=== PATIENT | female | born 1970 | race Two or more races ===

== ENCOUNTER 2016-12-27 11:39 | Inpatient (IN) | payer MEDICAID ==
[~2016-12-27] VITALS: Ht 152.4 cm; Wt 104.3 kg
[~2016-12-27 11:39] MED LIST: ACET500C26 PO; ACET500C8 PO; AMIT25TA9 PO; AMLO5TAB2 PO; ASPI-264 PO; ATOR1TAB PO; CITA20TA3 PO; FLUT110A INH; GABA300C8 PO; INSLANTI; INSLISPI; INSUPOW; LEVE100012 PO; METF-312; NOR10T PO; OMEP20CA5 PO; TELM80TA PO
[2016-12-27 12:23] LABS: Basophils # (auto) 0 uL; Basophils % (auto) 0.5 % (0.0-2.0); DEFINITIVE VIEW TRANSMISSION; Eosinophils # (auto) 0.1 uL; Eosinophils % (auto) 0.8 % (0.0-7.0); Hematocrit 35.2 % (36.0-46.0); Lymphocytes # (auto) 1.9 uL; Mean Corpuscular Hemoglobin 22.5 pg (28.0-32.0); Mean Corpuscular Hgb Conc. 31.4 g/dL (32.0-36.0); Mean Corpuscular Volume 71.6 fL (80.0-100.0); Mean Platelet Volume 8.1 fL (7.4-10.4); Monocytes # (auto) 0.7 uL; Neutrophils # (auto) 6.7 uL; Neutrophils % (auto) 71.7 % (37.0-80.0); Platelet Count (auto) 439 10^3/uL (140-450); White Blood Cell 9.3 10^3/uL (4.4-10.8)
[2016-12-27] MEDS ORDERED: SODIUM CHLORIDE 0.9% 1,000 ML IV ONE (12:30)
[2016-12-27] MEDS ORDERED: cefTRIAXone 1GM/50ML D5W 50 ML IV ONE (12:30)
[2016-12-27] MEDS ORDERED: ALBUTEROL SULF 2.5 MG/0.5ML(0.5%) NEB SOLN NEB ONE (12:30)
[2016-12-27] MEDS ORDERED: IPRATROPIUM BROM 0.5 MG/2.5ML INH SOL NEB ONE (12:30)
[2016-12-27] MEDS ORDERED: methylPREDNISolone SOD SUCC 125 MG/2 ML VL IV ONE (12:30)
[2016-12-27 12:42] LABS: Albumin 3.1 g/dL (3.4-5.0); Anion Gap 9 (5-15); Blood Urea Nitrogen 7 mg/dL (7-18); Calcium 8.3 mg/dL (8.5-10.1); Carbon Dioxide 24 mmol/L (21-32); Chloride 100 mmol/L (98-107); Glucose 308 mg/dL (74-106); Magnesium 1.8 mg/dL (1.6-2.6); Potassium 3.7 mmol/L (3.5-5.1); Sodium 133 mmol/L (136-145)
[2016-12-27 12:45] LABS: Lactic Acid w/Reflex 2.2 mmol/L (0.4-2.0)
[2016-12-27 12:47] LABS: Alkaline Phosphatase 92 U/L (45-117); Aspartate Aminotransferase 14 U/L (15-37); Bilirubin, Total 0.6 mg/dL (0.2-1.0); GFR African American 116 mL/min; GFR Non-African American 96 mL/min; Total Protein 7.6 g/dL (6.4-8.2)
[2016-12-27 13:17] LABS: REFLEX LACTIC ACID YES OR NO YES
[2016-12-27] MEDS ORDERED: IBUPROFEN 600 MG TAB PO ONE (13:30)
[2016-12-27] MEDS ORDERED: InsuLIN REG 1unit/0.01ml Soln (100units/ml) IV ONE (14:15)
[2016-12-27] MEDS ORDERED: AZITHROMYCIN 500MG/D5W 250ML 250 ML IV ONE (15:30)
[2016-12-27] MEDS ORDERED: LORazepam 2MG/ML-1ML VIAL IV PRN (15:30)
[2016-12-27] MEDS ORDERED: DOCUSATE SOD 100 MG CAP PO PRN (15:45)
[2016-12-27] MEDS ORDERED: ACETAMINOPHEN 325 MG TAB PO PRN ×2 (15:45)
[2016-12-27] MEDS ORDERED: NITROGLYCERIN 0.4 MG SL TAB SL PRN (15:45)
[2016-12-27] MEDS ORDERED: MORPHINE SULF INJ 2 MG/ML SYRINGE 1ML IV PRN (15:45)
[2016-12-27] MEDS: NovoloG Insulin 1unit/0.01ml Soln (100units/ml) SC SCH (17:58)
[2016-12-27] MEDS: metFORMIN HYDROCHLORIDE 500 MG TAB PO SCH (18:40)
[2016-12-27] MEDS: Boost Glucose Control 8 Ounces PO SCH (18:40)
[2016-12-27] MEDS: IPRATROPIUM BROM 0.5 MG/2.5ML INH SOL NEB SCH (19:08)
[2016-12-27] MEDS: ALBUTEROL SULF 2.5 MG/0.5ML(0.5%) NEB SOLN NEB SCH (19:08)
[2016-12-27 20:34] VITALS: BP 142/81
[2016-12-27] MEDS: MORPHINE SULF INJ 2 MG/ML SYRINGE 1ML IV PRN (21:00)
[2016-12-27 21:54] VITALS: BP 123/44
[2016-12-27] MEDS: LEVETIRACETAM 500 MG TAB PO SCH (22:32)
[2016-12-27] MEDS: SODIUM CHLOR 0.9% PF (SALINE LOCK) 10ML VIAL IV SCH (22:32)
[2016-12-27] MEDS: GABAPENTIN 400 MG CAP PO SCH (22:33)
[2016-12-27] MEDS: FAMOTIDINE 20 MG TAB PO SCH (22:33)
[2016-12-27] MEDS: INSULIN DETEMIR(LEVEMIR) 1unit/0.01ml Soln (100units/ml) SC SCH (23:03)
[2016-12-27] MEDS: TEMAZEPAM 15 MG CAP PO PRN (23:27)
[2016-12-28] VITALS (7 sets, daily range): BP systolic 100–127; BP diastolic 60–76
[2016-12-28] MEDS: SODIUM CHLOR 0.9% PF (SALINE LOCK) 10ML VIAL IV SCH ×3 (05:28→21:41)
[2016-12-28] MEDS: metFORMIN HYDROCHLORIDE 500 MG TAB PO SCH ×2 (06:15→17:34)
[2016-12-28] MEDS: GABAPENTIN 400 MG CAP PO SCH ×3 (06:15→21:41)
[2016-12-28] MEDS: NovoloG Insulin 1unit/0.01ml Soln (100units/ml) SC SCH ×3 (06:31→17:13)
[2016-12-28 06:39] LABS: Basophils # (auto) 0 uL; DEFINITIVE VIEW TRANSMISSION; Eosinophils # (auto) 0 uL; Hematocrit 32.6 % (36.0-46.0); Hemoglobin 10.1 g/dL (12.2-16.2); Lymphocytes # (auto) 1.2 uL; Lymphocytes % (auto) 8.9 % (10.0-50.0); Mean Corpuscular Hemoglobin 22.5 pg (28.0-32.0); Mean Corpuscular Hgb Conc. 31.1 g/dL (32.0-36.0); Mean Corpuscular Volume 72.6 fL (80.0-100.0); Mean Platelet Volume 8.6 fL (7.4-10.4); Monocytes # (auto) 0.5 uL; Monocytes % (auto) 3.8 % (0.0-12.0); Neutrophils # (auto) 11.8 uL; Neutrophils % (auto) 87.3 % (37.0-80.0); Platelet Count (auto) 431 10^3/uL (140-450); White Blood Cell 13.5 10^3/uL (4.4-10.8)
[2016-12-28 06:48] LABS: Albumin 2.8 g/dL (3.4-5.0); Calcium 8.3 mg/dL (8.5-10.1); Potassium 3.7 mmol/L (3.5-5.1)
[2016-12-28 06:50] LABS: BUN/Creatinine Ratio 23.4
[2016-12-28 06:53] LABS: Bilirubin, Total 0.4 mg/dL (0.2-1.0); Total Protein 7.1 g/dL (6.4-8.2)
[2016-12-28 07:00] LABS: Anisocytosis Slight; Hypochromia Moderate; Microcytosis Moderate; Platelet Estimate Adequate
[2016-12-28] MEDS: ALBUTEROL SULF 2.5 MG/0.5ML(0.5%) NEB SOLN NEB SCH ×3 (07:50→19:15)
[2016-12-28] MEDS: IPRATROPIUM BROM 0.5 MG/2.5ML INH SOL NEB SCH ×3 (07:50→19:15)
[2016-12-28] MEDS: Boost Glucose Control 8 Ounces PO SCH ×3 (08:00→17:33)
[2016-12-28] MEDS: ONDANSETRON HCL 4 MG/2 ML VIAL IV PRN ×3 (08:45→20:12)
[2016-12-28] MEDS: MORPHINE SULF INJ 2 MG/ML SYRINGE 1ML IV PRN ×3 (08:45→20:12)
[2016-12-28] MEDS: cefTRIAXone 1GM/50ML D5W 50 ML IV SCH (09:44)
[2016-12-28] MEDS: AZITHROMYCIN 500MG/D5W 250ML 250 ML IV SCH (09:44)
[2016-12-28] MEDS: MULTIPLE VITAMIN TAB PO SCH (09:45)
[2016-12-28] MEDS: VALSARTAN 80 MG TAB PO SCH (09:45)
[2016-12-28] MEDS: LEVETIRACETAM 500 MG TAB PO SCH ×2 (09:45→21:41)
[2016-12-28] MEDS: amLODIPine BESYLATE 5 MG TAB PO SCH (09:45)
[2016-12-28] MEDS: FAMOTIDINE 20 MG TAB PO SCH ×2 (09:46→21:41)
[2016-12-28] MEDS ORDERED: OSELTAMIVIR 30 MG CAP PO SCH (11:34)
[2016-12-28] MEDS ORDERED: OSELTAMIVIR 75 MG CAP PO SCH (11:35)
[2016-12-28] MEDS: INSULIN DETEMIR(LEVEMIR) 1unit/0.01ml Soln (100units/ml) SC SCH (21:47)
[2016-12-29] MEDS: MORPHINE SULF INJ 2 MG/ML SYRINGE 1ML IV PRN ×5 (02:40→23:11)
[2016-12-29 05:30] VITALS: BP 105/69
[2016-12-29] MEDS: GABAPENTIN 400 MG CAP PO SCH ×3 (05:31→21:53)
[2016-12-29] MEDS: SODIUM CHLOR 0.9% PF (SALINE LOCK) 10ML VIAL IV SCH ×3 (06:20→21:56)
[2016-12-29] MEDS: NovoloG Insulin 1unit/0.01ml Soln (100units/ml) SC SCH ×3 (06:27→18:25)
[2016-12-29] MEDS: metFORMIN HYDROCHLORIDE 500 MG TAB PO SCH ×2 (06:27→18:23)
[2016-12-29] MEDS: IPRATROPIUM BROM 0.5 MG/2.5ML INH SOL NEB SCH ×4 (06:35→19:53)
[2016-12-29] MEDS: ALBUTEROL SULF 2.5 MG/0.5ML(0.5%) NEB SOLN NEB SCH ×4 (06:35→19:53)
[2016-12-29 08:00] VITALS: BP 115/69
[2016-12-29 08:25] VITALS: BP 115/69
[2016-12-29 09:07] LABS: Basophils # (auto) 0 uL; Basophils % (auto) 0.3 % (0.0-2.0); DEFINITIVE VIEW TRANSMISSION; Eosinophils # (auto) 0.1 uL; Eosinophils % (auto) 1.2 % (0.0-7.0); Hematocrit 29.9 % (36.0-46.0); Hemoglobin 9.3 g/dL (12.2-16.2); Lymphocytes # (auto) 3.2 uL; Lymphocytes % (auto) 33.7 % (10.0-50.0); Mean Corpuscular Hemoglobin 22.8 pg (28.0-32.0); Mean Corpuscular Hgb Conc. 31.1 g/dL (32.0-36.0); Mean Corpuscular Volume 73.3 fL (80.0-100.0); Mean Platelet Volume 8.1 fL (7.4-10.4); Monocytes # (auto) 0.6 uL; Monocytes % (auto) 6.2 % (0.0-12.0); Neutrophils # (auto) 5.6 uL; Neutrophils % (auto) 58.6 % (37.0-80.0); Platelet Count (auto) 411 10^3/uL (140-450); Red Cell Distribution Width 17.8 % (11.6-16.0); White Blood Cell 9.5 10^3/uL (4.4-10.8)
[2016-12-29] MEDS: Boost Glucose Control 8 Ounces PO SCH ×3 (09:18→18:23)
[2016-12-29] MEDS: cefTRIAXone 1GM/50ML D5W 50 ML IV SCH (09:18)
[2016-12-29] MEDS: AZITHROMYCIN 500MG/D5W 250ML 250 ML IV SCH (10:16)
[2016-12-29] MEDS: LEVETIRACETAM 500 MG TAB PO SCH ×2 (10:17→21:55)
[2016-12-29] MEDS: VALSARTAN 80 MG TAB PO SCH (10:17)
[2016-12-29] MEDS: FAMOTIDINE 20 MG TAB PO SCH ×2 (10:18→21:53)
[2016-12-29] MEDS: MULTIPLE VITAMIN TAB PO SCH (10:18)
[2016-12-29] MEDS: amLODIPine BESYLATE 5 MG TAB PO SCH (10:18)
[2016-12-29] MEDS: ONDANSETRON HCL 4 MG/2 ML VIAL IV PRN (10:32)
[2016-12-29 12:55] VITALS: BP 99/56
[2016-12-29 17:01] VITALS: BP 119/70
[2016-12-29] MEDS: TEMAZEPAM 15 MG CAP PO PRN (21:52)
[2016-12-29 22:00] VITALS: BP 108/56
[2016-12-29] MEDS: INSULIN DETEMIR(LEVEMIR) 1unit/0.01ml Soln (100units/ml) SC SCH (22:00)
[2016-12-29] MEDS ORDERED: ASCORBIC ACID 500 MG TAB PO SCH (22:00)
[2016-12-30] MEDS: IPRATROPIUM BROM 0.5 MG/2.5ML INH SOL NEB SCH ×2 (01:24→06:00)
[2016-12-30] MEDS: ALBUTEROL SULF 2.5 MG/0.5ML(0.5%) NEB SOLN NEB SCH ×2 (01:24→06:00)
[2016-12-30] MEDS: MORPHINE SULF INJ 2 MG/ML SYRINGE 1ML IV PRN ×2 (03:23→08:32)
[2016-12-30 05:30] VITALS: BP 124/76
[2016-12-30] MEDS: GABAPENTIN 400 MG CAP PO SCH (06:09)
[2016-12-30] MEDS: NovoloG Insulin 1unit/0.01ml Soln (100units/ml) SC SCH (06:09)
[2016-12-30] MEDS: metFORMIN HYDROCHLORIDE 500 MG TAB PO SCH (06:09)
[2016-12-30] MEDS: SODIUM CHLOR 0.9% PF (SALINE LOCK) 10ML VIAL IV SCH (06:09)
[2016-12-30] MEDS: cefTRIAXone 1GM/50ML D5W 50 ML IV SCH (08:32)
[2016-12-30 09:12] VITALS: BP 125/65
[2016-12-30] MEDS ORDERED: AMOX-263 PO (09:24)
[2016-12-30] MEDS ORDERED: AZI250T PO (09:24)
[2016-12-30] MEDS ORDERED: ASCO500T11 PO (09:24)
[2016-12-30 11:09] VITALS: BP 115/69
== END 2016-12-30 11:50 | disposition home or self-care (01) | DRG 139 ==
LOC: ER 11:43 → TELE 11:44 → TELE-WESTW 21:47
PROVIDERS: ADMIT Internal Medicine; ATTEND Internal Medicine
DX: J10.00 Influenza due to other identified influenza virus with unspecified type of pneumonia (principal); G93.41 Metabolic encephalopathy; E10.22 Type 1 diabetes mellitus with diabetic chronic kidney disease; E44.0 Moderate protein-calorie malnutrition; J44.0 Chronic obstructive pulmonary disease with (acute) lower respiratory infection; J45.901 Unspecified asthma with (acute) exacerbation; E10.65 Type 1 diabetes mellitus with hyperglycemia; I15.9 Secondary hypertension, unspecified; I12.9 Hypertensive chronic kidney disease with stage 1 through stage 4 chronic kidney disease, or unspecified chronic kidney disease; J44.1 Chronic obstructive pulmonary disease with (acute) exacerbation; E87.1 Hypo-osmolality and hyponatremia; J18.9 Pneumonia, unspecified organism; E83.51 Hypocalcemia; N18.9 Chronic kidney disease, unspecified; D50.9 Iron deficiency anemia, unspecified; G40.909 Epilepsy, unspecified, not intractable, without status epilepticus; Z79.4 Long term (current) use of insulin; Z86.73 Personal history of transient ischemic attack (TIA), and cerebral infarction without residual deficits; Z86.011 Personal history of benign neoplasm of the brain; Z68.41 Body mass index [BMI] 40.0-44.9, adult; Z90.49 Acquired absence of other specified parts of digestive tract; Z82.49 Family history of ischemic heart disease and other diseases of the circulatory system; Z83.3 Family history of diabetes mellitus; Z80.9 Family history of malignant neoplasm, unspecified; Z87.891 Personal history of nicotine dependence
CPT/HCPCS: 36415; 71020; 80053; 81025; 82962; 83036; 83540; 83605; 83735; 84443; 84484; 85025; 87040; 87081; 87400; 93005; 94640; 96365; 96366; 96367; 96375; G9035; J0696; J1815; J2405

== ENCOUNTER 2017-06-19 15:45 | Emergency (ER) | payer MEDICAID ==
[~2017-06-19] VITALS: Ht 152.4 cm; Wt 85.7 kg
[~2017-06-19 15:45] MED LIST changes: +AMOX-263 PO; +ASCO500T11 PO; +AZI250T PO; +GABA-497 PO; -GABA300C8 PO; -METF-312; +METF-370; -OMEP20CA5 PO; +OMEP20CA74 PO
[2017-06-19] MEDS ORDERED: SODIUM CHLORIDE 0.9% 1,000 ML IV ONE (16:07)
[2017-06-19 16:30] LABS: Basophils # (auto) 0 uL; Eosinophils # (auto) 0.1 uL; Hemoglobin 10.8 g/dL (12.2-16.2); Monocytes # (auto) 0.6 uL; Monocytes % (auto) 5.8 % (0.0-12.0); Nucleated Red Blood Cells % 0.1 %; Red Cell Distribution Width 17.5 % (11.8-14.3); White Blood Cell 9.7 10^3/uL (4.4-10.8)
[2017-06-19] MEDS ORDERED: ACETAMINOPHEN 325 MG TAB PO ONE (16:30)
[2017-06-19 16:31] LABS: Basophils % (auto) 0.2 % (0.0-2.0); Eosinophils % (auto) 1.3 % (0.0-7.0); Hematocrit 35.1 % (36.0-46.0); Lymphocytes # (auto) 2.7 uL; Mean Corpuscular Hemoglobin 21.6 pg (28.0-32.0); Mean Corpuscular Hgb Conc. 30.8 g/dL (32.0-36.0); Mean Corpuscular Volume 70.2 fL (80.0-100.0); Mean Platelet Volume 7.7 fL (6.9-10.8); Neutrophils # (auto) 6.3 uL; Neutrophils % (auto) 64.7 % (37.0-80.0); Platelet Count (auto) 397 10^3/uL (140-450)
[2017-06-19 16:36] LABS: Urine Bilirubin Negative (Negative); Urine Blood 2+ /uL (Negative); Urine Color Yellow (Yellow); Urine Glucose 2+ mg/dL (Normal); Urine Ketone Negative (Negative); Urine Nitrite Negative (Negative); Urine RBC 10 /hpf (0 - 4); Urine Squamous Epithelial Cell FEW /hpf (<5); Urine Urobilinogen Normal (Negative)
[2017-06-19 16:47] LABS: Albumin 3.4 g/dL (3.4-5.0); Calcium 8.8 mg/dL (8.5-10.1); Potassium 3.7 mmol/L (3.5-5.1)
[2017-06-19 16:50] LABS: Bilirubin, Total 0.6 mg/dL (0.2-1.0); Total Protein 7.8 g/dL (6.4-8.2)
[2017-06-19 17:25] VITALS: BP 117/79
== END 2017-06-19 17:26 | disposition home or self-care (01) ==
LOC: ER 15:47
DX: E11.65 Type 2 diabetes mellitus with hyperglycemia (principal); F17.210 Nicotine dependence, cigarettes, uncomplicated; Z79.82 Long term (current) use of aspirin; Z79.4 Long term (current) use of insulin
CPT/HCPCS: 36415; 80053; 81001; 82962; 85025; 94761; 96360; 99284; J7030

== ENCOUNTER 2018-02-16 13:36 | Inpatient (IN) | payer MEDICARE, MEDICAID ==
[~2018-02-16] VITALS: Ht 152.4 cm; Wt 92.8 kg
[~2018-02-16 13:36] MED LIST changes: -AZI250T PO; +AZIT250T8 PO; -GABA-497 PO; +GABA300C10 PO
[2018-02-16 14:23] LABS: Basophils # (auto) 0.1 uL; Basophils % (auto) 0.9 % (0.0-2.0); Eosinophils # (auto) 0.1 uL; Eosinophils % (auto) 0.9 % (0.0-7.0); Hematocrit 48.7 % (36.0-46.0); Hemoglobin 16.4 g/dL (12.2-16.2); Lymphocytes # (auto) 2.4 uL; Lymphocytes % (auto) 25.6 % (10.0-50.0); Mean Corpuscular Hemoglobin 30.2 pg (28.0-32.0); Mean Corpuscular Hgb Conc. 33.7 g/dL (32.0-36.0); Mean Corpuscular Volume 89.5 fL (80.0-100.0); Monocytes # (auto) 0.4 uL; Monocytes % (auto) 4.2 % (0.0-12.0); Neutrophils # (auto) 6.4 uL; Neutrophils % (auto) 68.4 % (37.0-80.0); Nucleated Red Blood Cells % 0.1 %; Platelet Count (auto) 362 10^3/uL (140-450); Red Blood Cells 5.45 10^6/uL (4.0-5.20); White Blood Cell 9.4 10^3/uL (4.4-10.8)
[2018-02-16 14:40] LABS: Alanine Aminotransferase 23 U/L (13-56); Albumin 3.1 g/dL (3.4-5.0); Anion Gap 13 (5-15); Aspartate Aminotransferase 15 U/L (15-37); BUN/Creatinine Ratio 11.8; Blood Urea Nitrogen 11 mg/dL (7-18); Calcium 8.3 mg/dL (8.5-10.1); Carbon Dioxide 23 mmol/L (21-32); Chloride 96 mmol/L (98-107); GFR African American 83 mL/min; GFR Non-African American 69 mL/min; Potassium 4.1 mmol/L (3.5-5.1); Sodium 132 mmol/L (136-145)
[2018-02-16 14:46] LABS: Alkaline Phosphatase 135 U/L (45-117); Bilirubin, Total 0.4 mg/dL (0.2-1.0); Total Protein 8.1 g/dL (6.4-8.2)
[2018-02-16 14:59] LABS: Glucose 495 mg/dL (74-106)
[2018-02-16] MEDS ORDERED: InsuLIN REG 1unit/0.01ml Soln (100units/ml) IV ONE (15:15)
[2018-02-16] MEDS ORDERED: PROMETHAZINE HCL 25 MG/ML 1ML IV PRN (16:00)
[2018-02-16] MEDS: ACCU-CHEK COMFORT CURVE STRIP VI SCH ×3 (16:00→23:40)
[2018-02-16] MEDS ORDERED: LORazepam 0.5 MG TAB PO PRN (16:00)
[2018-02-16] MEDS ORDERED: LACTULOSE 20Gm/30ML SOLN PO PRN (16:00)
[2018-02-16] MEDS ORDERED: NITROGLYCERIN 0.4 MG SL TAB SL PRN (16:00)
[2018-02-16] MEDS ORDERED: DEXTROSE (50%) 50ML SYRG IV PRN (16:00)
[2018-02-16] MEDS ORDERED: MORPHINE SULFATE 8mg/ml INJ SDV IV PRN ×2 (16:00)
[2018-02-16] MEDS: InsuLIN REG 1unit/0.01ml Soln (100units/ml) SC SCH ×2 (16:00→20:29)
[2018-02-16] MEDS: CLINDAMYCIN 600MG IV 50 ML IV SCH (16:30)
[2018-02-16] MEDS ORDERED: LORazepam 2MG/ML-1ML VIAL IV PRN (18:00)
[2018-02-16] MEDS: AMITRIPTYLINE HCL 25 MG TAB PO SCH (18:00)
[2018-02-16 19:30] LABS: Urine Bacteria NONE SEEN /hpf (None Seen); Urine Blood Negative /uL (Negative); Urine Specific Gravity 1.038 (1.001-1.035); Urine WBC 2 /hpf (0 - 5)
[2018-02-16 19:44] LABS: Alcohol, Urine < 3.0 mg/dL (0-5); Amphetamine Screen, Urine NEGATIVE (NEGATIVE); Barbiturate Scree,Urine NEGATIVE (NEGATIVE); Benzodiazephine Screen, Urine NEGATIVE (NEGATIVE); Cannabinoid Screen, Urine NEGATIVE (NEGATIVE); Cocaine Screen, Urine NEGATIVE (NEGATIVE); Opiate Scree,Urine NEGATIVE (NEGATIVE); Phencyclidine Screen, Urine NEGATIVE (NEGATIVE)
[2018-02-16] MEDS: ATORVASTATIN 20 MG TAB PO SCH (20:59)
[2018-02-16] MEDS: ASCORBIC ACID 500 MG TAB PO SCH (21:00)
[2018-02-16] MEDS: HYDROcodone-ACET 5/325MG TAB PO PRN (21:01)
[2018-02-16] MEDS: LEVETIRACETAM 500 MG TAB PO SCH (21:01)
[2018-02-16 21:15] VITALS: BP 141/93
[2018-02-16 22:00] VITALS: BP 141/93
[2018-02-16] MEDS ORDERED: FLUTICASONE PROP NASAL SPR 0.05 % (50MCG) 16GM EACHNOSTRI SCH (22:00)
[2018-02-16] MEDS ORDERED: GABAPENTIN 300 MG CAP PO SCH (22:00)
[2018-02-16] MEDS ORDERED: ATORVASTATIN 20 MG TAB PO SCH (22:00)
[2018-02-16] MEDS ORDERED: ACETAZOLAMIDE 500 MG PO SCH (22:00)
[2018-02-16] MEDS: TEMAZEPAM 15 MG CAP PO PRN (23:38)
[2018-02-16] MEDS: INSULIN LANTUS (GLARGINE) 1 /0.01ml (100units/ml) SC SCH (23:40)
[2018-02-17] MEDS: CLINDAMYCIN 600MG IV 50 ML IV SCH ×3 (01:28→16:49)
[2018-02-17] MEDS ORDERED: CIPR-173 PO (02:05)
[2018-02-17] MEDS ORDERED: CYCL1TAB18 PO (02:05)
[2018-02-17] MEDS ORDERED: LOSA100T33 PO (02:05)
[2018-02-17] MEDS ORDERED: BACL10TA PO (02:05)
[2018-02-17] MEDS: InsuLIN REG 1unit/0.01ml Soln (100units/ml) SC SCH ×7 (03:29→23:47)
[2018-02-17] MEDS: ACCU-CHEK COMFORT CURVE STRIP VI SCH ×6 (03:29→23:47)
[2018-02-17 05:28] VITALS: BP 117/77
[2018-02-17 07:18] LABS: INR 0.93 (0.9-1.15); Partial Thromboplastin Time 27.4 sec (23.78-33.04)
[2018-02-17 07:59] LABS: Cholesterol 265 mg/dL (< 200); HDL Cholesterol 34 mg/dL (40-59); LDL Cholesterol 189 mg/dL (< 100); Triglycerides 265 mg/dL (< 150)
[2018-02-17 08:35] VITALS: BP 109/75
[2018-02-17] MEDS ORDERED: ASPirin-EC 325mg tab PO SCH (10:00)
[2018-02-17] MEDS: TELMISARTAN HYDROCHLOROTHIAZID PO SCH (10:00)
[2018-02-17] MEDS: NITROGLYCERIN 0.2MG/HR TOPICAL PATCH TD SCH (10:00)
[2018-02-17] MEDS: ASPirin 81 mg TAB PO SCH (11:00)
[2018-02-17] MEDS: LEVETIRACETAM 500 MG TAB PO SCH ×2 (11:00→22:12)
[2018-02-17] MEDS: cefTRIAXone 1GM/10ml IVPUSH 10 ML IV SCH (11:00)
[2018-02-17] MEDS: CITALOPRAM HYDROBR 20 MG TAB PO SCH (11:00)
[2018-02-17] MEDS: amLODIPine BESYLATE 5 MG TAB PO SCH (11:01)
[2018-02-17] MEDS: ASCORBIC ACID 500 MG TAB PO SCH ×2 (11:01→22:12)
[2018-02-17] MEDS: PANTOPRAZOLE 40 MG TAB PO SCH (11:01)
[2018-02-17] MEDS: ENOXAPARIN SOD 40 MG/0.4 ML SYRINGE SC SCH (11:02)
[2018-02-17] MEDS: INSULIN LANTUS (GLARGINE) 1 /0.01ml (100units/ml) SC SCH ×2 (11:02→22:11)
[2018-02-17 12:02] VITALS: BP 100/65
[2018-02-17 16:56] VITALS: BP 134/84
[2018-02-17] MEDS: AMITRIPTYLINE HCL 25 MG TAB PO SCH (18:24)
[2018-02-17 21:04] VITALS: BP 126/79
[2018-02-17] MEDS: ATORVASTATIN 20 MG TAB PO SCH (22:12)
[2018-02-18] MEDS: CLINDAMYCIN 600MG IV 50 ML IV SCH ×3 (00:56→16:19)
[2018-02-18] MEDS: ACCU-CHEK COMFORT CURVE STRIP VI SCH ×6 (04:13→23:49)
[2018-02-18] MEDS: InsuLIN REG 1unit/0.01ml Soln (100units/ml) SC SCH ×6 (04:13→23:50)
[2018-02-18 04:58] VITALS: BP 133/79
[2018-02-18] MEDS: ACETAMINOPHEN 500 MG TAB PO PRN (08:29)
[2018-02-18 09:00] VITALS: BP 140/72
[2018-02-18] MEDS: TELMISARTAN HYDROCHLOROTHIAZID PO SCH (10:00)
[2018-02-18] MEDS: NITROGLYCERIN 0.2MG/HR TOPICAL PATCH TD SCH (10:00)
[2018-02-18] MEDS: HYDROcodone-ACET 5/325MG TAB PO PRN (10:15)
[2018-02-18] MEDS ORDERED: SODIUM CHLORIDE 0.9% 1,000 ML IV ONE (10:15)
[2018-02-18] MEDS: ASPirin 81 mg TAB PO SCH (10:55)
[2018-02-18] MEDS: cefTRIAXone 1GM/10ml IVPUSH 10 ML IV SCH (10:55)
[2018-02-18] MEDS: CITALOPRAM HYDROBR 20 MG TAB PO SCH (10:56)
[2018-02-18] MEDS: LEVETIRACETAM 500 MG TAB PO SCH ×2 (10:56→22:32)
[2018-02-18] MEDS: ASCORBIC ACID 500 MG TAB PO SCH ×2 (10:57→22:31)
[2018-02-18] MEDS: PANTOPRAZOLE 40 MG TAB PO SCH (10:57)
[2018-02-18] MEDS: amLODIPine BESYLATE 5 MG TAB PO SCH (10:57)
[2018-02-18 10:58] LABS: BUN/Creatinine Ratio 32.2; Calcium 8.6 mg/dL (8.5-10.1); Potassium 4.2 mmol/L (3.5-5.1)
[2018-02-18] MEDS: ENOXAPARIN SOD 40 MG/0.4 ML SYRINGE SC SCH (10:58)
[2018-02-18] MEDS: INSULIN LANTUS (GLARGINE) 1 /0.01ml (100units/ml) SC SCH ×2 (10:58→22:00)
[2018-02-18 13:00] VITALS: BP 156/94
[2018-02-18 17:00] VITALS: BP 123/64
[2018-02-18] MEDS: AMITRIPTYLINE HCL 25 MG TAB PO SCH (18:00)
[2018-02-18 22:00] VITALS: BP 133/84
[2018-02-18] MEDS: ATORVASTATIN 20 MG TAB PO SCH (22:32)
[2018-02-19] MEDS: CLINDAMYCIN 600MG IV 50 ML IV SCH ×3 (00:01→16:23)
[2018-02-19] MEDS: ACCU-CHEK COMFORT CURVE STRIP VI SCH ×5 (04:00→20:00)
[2018-02-19] MEDS: InsuLIN REG 1unit/0.01ml Soln (100units/ml) SC SCH ×5 (04:00→20:00)
[2018-02-19 05:26] VITALS: BP 133/88
[2018-02-19] MEDS ORDERED: fentaNYL CITRATE 100 MCG/2 ML VL ONE (07:56)
[2018-02-19] MEDS ORDERED: SODIUM CHL 0.9% 50 ML ONE (07:56)
[2018-02-19] MEDS ORDERED: ANGIOMAX 250 MG VIAL IV ONE (07:56)
[2018-02-19] MEDS ORDERED: MIDAZOLAM HCL 1MG/1ML-2 ML VIAL ONE (07:56)
[2018-02-19] MEDS: cefTRIAXone 1GM/10ml IVPUSH 10 ML IV SCH (09:00)
[2018-02-19] MEDS ORDERED: VERAPAMIL 2.5MG/ML INJ 2ML VIAL IV ONE (09:23)
[2018-02-19] MEDS ORDERED: HEPARIN 1,000 UNITS/ml 1ML VIAL ONE (09:38)
[2018-02-19] MEDS: ENOXAPARIN SOD 40 MG/0.4 ML SYRINGE SC SCH (10:00)
[2018-02-19] MEDS: NITROGLYCERIN 0.2MG/HR TOPICAL PATCH TD SCH (10:00)
[2018-02-19] MEDS: amLODIPine BESYLATE 5 MG TAB PO SCH (10:00)
[2018-02-19] MEDS: TELMISARTAN HYDROCHLOROTHIAZID PO SCH (10:00)
[2018-02-19 12:00] VITALS: BP 149/88
[2018-02-19] MEDS: CITALOPRAM HYDROBR 20 MG TAB PO SCH (13:13)
[2018-02-19] MEDS: ASPirin 81 mg TAB PO SCH (13:13)
[2018-02-19] MEDS: PANTOPRAZOLE 40 MG TAB PO SCH (13:14)
[2018-02-19] MEDS: LEVETIRACETAM 500 MG TAB PO SCH ×2 (13:14→22:45)
[2018-02-19] MEDS: ASCORBIC ACID 500 MG TAB PO SCH ×2 (13:15→22:46)
[2018-02-19] MEDS: INSULIN LANTUS (GLARGINE) 1 /0.01ml (100units/ml) SC SCH ×2 (13:15→22:00)
[2018-02-19 16:00] VITALS: BP 123/71
[2018-02-19] MEDS: HYDROcodone-ACET 5/325MG TAB PO PRN ×2 (16:21→22:46)
[2018-02-19] MEDS: AMITRIPTYLINE HCL 25 MG TAB PO SCH (18:00)
[2018-02-19] MEDS: ACETAMINOPHEN 500 MG TAB PO PRN (21:21)
[2018-02-19] MEDS: ATORVASTATIN 20 MG TAB PO SCH (22:44)
[2018-02-20] MEDS: TEMAZEPAM 15 MG CAP PO PRN (00:15)
[2018-02-20] MEDS: CLINDAMYCIN 600MG IV 50 ML IV SCH ×2 (00:15→08:55)
[2018-02-20] MEDS: ACCU-CHEK COMFORT CURVE STRIP VI SCH ×3 (04:00→08:54)
[2018-02-20] MEDS: InsuLIN REG 1unit/0.01ml Soln (100units/ml) SC SCH ×3 (04:00→08:55)
[2018-02-20 05:56] VITALS: BP 113/74
[2018-02-20 06:33] LABS: Basophils # (auto) 0 uL; Basophils % (auto) 0.5 % (0.0-2.0); Eosinophils # (auto) 0.1 uL; Eosinophils % (auto) 1.7 % (0.0-7.0); Hematocrit 40.7 % (36.0-46.0); Hemoglobin 13.7 g/dL (12.2-16.2); Lymphocytes # (auto) 2.5 uL; Lymphocytes % (auto) 34.7 % (10.0-50.0); Mean Corpuscular Hemoglobin 30.5 pg (28.0-32.0); Mean Corpuscular Hgb Conc. 33.8 g/dL (32.0-36.0); Mean Corpuscular Volume 90.3 fL (80.0-100.0); Monocytes # (auto) 0.5 uL; Monocytes % (auto) 7.2 % (0.0-12.0); Neutrophils % (auto) 55.9 % (37.0-80.0); Platelet Count (auto) 285 10^3/uL (140-450); Red Blood Cells 4.51 10^6/uL (4.0-5.20); White Blood Cell 7.2 10^3/uL (4.4-10.8)
[2018-02-20 07:11] LABS: Potassium 3.8 mmol/L (3.5-5.1)
[2018-02-20 07:14] LABS: Albumin 2.7 g/dL (3.4-5.0); BUN/Creatinine Ratio 34.5; Calcium 8.4 mg/dL (8.5-10.1)
[2018-02-20 07:23] LABS: Bilirubin, Total 0.5 mg/dL (0.2-1.0); Total Protein 6.3 g/dL (6.4-8.2)
[2018-02-20] MEDS: cefTRIAXone 1GM/10ml IVPUSH 10 ML IV SCH (08:55)
[2018-02-20 09:00] VITALS: BP 130/74
[2018-02-20] MEDS: ENOXAPARIN SOD 40 MG/0.4 ML SYRINGE SC SCH (10:00)
[2018-02-20] MEDS: NITROGLYCERIN 0.2MG/HR TOPICAL PATCH TD SCH (10:00)
[2018-02-20] MEDS: TELMISARTAN HYDROCHLOROTHIAZID PO SCH (10:00)
[2018-02-20] MEDS: amLODIPine BESYLATE 5 MG TAB PO SCH (10:22)
[2018-02-20] MEDS: ASCORBIC ACID 500 MG TAB PO SCH (10:22)
[2018-02-20] MEDS: CITALOPRAM HYDROBR 20 MG TAB PO SCH (10:23)
[2018-02-20] MEDS: ASPirin 81 mg TAB PO SCH (10:23)
[2018-02-20] MEDS: LEVETIRACETAM 500 MG TAB PO SCH (10:23)
[2018-02-20] MEDS: PANTOPRAZOLE 40 MG TAB PO SCH (10:23)
[2018-02-20] MEDS: INSULIN LANTUS (GLARGINE) 1 /0.01ml (100units/ml) SC SCH (11:04)
== END 2018-02-20 12:00 | disposition home or self-care (01) | DRG 205 ==
LOC: ER 13:43 → TELE 13:44 → TELE-CENTR 23:26
PROVIDERS: ADMIT Internal Medicine; ATTEND Family Medicine
PROC: B41G1ZZ Fluoroscopy of Left Lower Extremity Arteries using Low Osmolar Contrast (ICD-10-PCS; principal; 2018-02-19)
DX: M94.0 Chondrocostal junction syndrome [Tietze] (principal); E11.00 Type 2 diabetes mellitus with hyperosmolarity without nonketotic hyperglycemic-hyperosmolar coma (NKHHC); E11.52 Type 2 diabetes mellitus with diabetic peripheral angiopathy with gangrene; I69.354 Hemiplegia and hemiparesis following cerebral infarction affecting left non-dominant side; E87.1 Hypo-osmolality and hyponatremia; Z68.41 Body mass index [BMI] 40.0-44.9, adult; L03.032 Cellulitis of left toe; R56.9 Unspecified convulsions; I12.9 Hypertensive chronic kidney disease with stage 1 through stage 4 chronic kidney disease, or unspecified chronic kidney disease; N18.9 Chronic kidney disease, unspecified; E11.42 Type 2 diabetes mellitus with diabetic polyneuropathy; E78.5 Hyperlipidemia, unspecified; J45.909 Unspecified asthma, uncomplicated; E66.9 Obesity, unspecified; L97.529 Non-pressure chronic ulcer of other part of left foot with unspecified severity; E11.21 Type 2 diabetes mellitus with diabetic nephropathy; E78.00 Pure hypercholesterolemia, unspecified; F41.9 Anxiety disorder, unspecified; I25.10 Atherosclerotic heart disease of native coronary artery without angina pectoris; F17.210 Nicotine dependence, cigarettes, uncomplicated; R32 Unspecified urinary incontinence; E11.22 Type 2 diabetes mellitus with diabetic chronic kidney disease; L08.9 Local infection of the skin and subcutaneous tissue, unspecified; F32.9 Major depressive disorder, single episode, unspecified; Z82.49 Family history of ischemic heart disease and other diseases of the circulatory system; Z79.82 Long term (current) use of aspirin; Z79.899 Other long term (current) drug therapy; Z80.0 Family history of malignant neoplasm of digestive organs; Z82.5 Family history of asthma and other chronic lower respiratory diseases; Z82.0 Family history of epilepsy and other diseases of the nervous system; Z82.3 Family history of stroke; Z91.410 Personal history of adult physical and sexual abuse; Z83.3 Family history of diabetes mellitus
CPT/HCPCS: 36415; 71046; 73630; 76937; 80048; 80053; 80061; 80307; 81001; 82010; 82550; 82962; 83036; 83880; 84443; 84484; 85025; 85379; 85610; 85652; 85730; 86141; 87086; 93005; 93306; 93926; 96360; 96374; 99152; J1815; J2250; J3490

== ENCOUNTER 2018-05-07 13:35 | Emergency (ER) | payer MEDICAID, MEDICARE ==
[~2018-05-07] VITALS: Ht 152.4 cm; Wt 81.6 kg
[~2018-05-07 13:35] MED LIST changes: +BACL10TA PO; +CIPR-173 PO; +CYCL1TAB18 PO; +LOSA100T33 PO
[2018-05-07] MEDS ORDERED: SODIUM CHLORIDE 0.9% 500 ML IV ONE (15:17)
[2018-05-07] MEDS ORDERED: FAMOTIDINE (10MG/ML) 2ML VL IV ONE (15:30)
[2018-05-07] MEDS ORDERED: diphenhdrAMINE HCL 50 MG/1 ML VL IV ONE (15:30)
[2018-05-07 16:06] LABS: INR 0.91 (0.9-1.15); Partial Thromboplastin Time 26.9 sec (23.78-33.04); Prothrombin Time 9.8 sec (9.27-12.13)
[2018-05-07 16:16] LABS: Albumin 3.4 g/dL (3.4-5.0); BUN/Creatinine Ratio 24.4; Bilirubin, Total 0.6 mg/dL (0.2-1.0); Calcium 8.8 mg/dL (8.5-10.1); Potassium 4.3 mmol/L (3.5-5.1); Total Protein 7.9 g/dL (6.4-8.2)
[2018-05-07 16:34] LABS: Basophils # (auto) 0.1 uL; Eosinophils # (auto) 0.1 uL; Eosinophils % (auto) 1.4 % (0.0-7.0); Hematocrit 46.4 % (36.0-46.0); Mean Corpuscular Hemoglobin 31.7 pg (28.0-32.0); Mean Corpuscular Hgb Conc. 34.5 g/dL (32.0-36.0); Mean Corpuscular Volume 91.9 fL (80.0-100.0); Monocytes # (auto) 0.4 uL; Monocytes % (auto) 6.4 % (0.0-12.0); Neutrophils # (auto) 3.7 uL; Neutrophils % (auto) 59.2 % (37.0-80.0); Nucleated Red Blood Cells % 0.1 %; Platelet Count (auto) 296 10^3/uL (140-450); Red Blood Cells 5.04 10^6/uL (4.0-5.20); White Blood Cell 6.2 10^3/uL (4.4-10.8)
[2018-05-07 18:51] VITALS: BP 148/85
== END 2018-05-07 18:53 | disposition home or self-care (01) ==
LOC: ER 13:37
DX: G24.09 Other drug induced dystonia (principal); J45.909 Unspecified asthma, uncomplicated; E78.5 Hyperlipidemia, unspecified; I12.9 Hypertensive chronic kidney disease with stage 1 through stage 4 chronic kidney disease, or unspecified chronic kidney disease; E11.22 Type 2 diabetes mellitus with diabetic chronic kidney disease; N18.9 Chronic kidney disease, unspecified; Z79.82 Long term (current) use of aspirin; Z79.4 Long term (current) use of insulin; Z79.899 Other long term (current) drug therapy; Z86.73 Personal history of transient ischemic attack (TIA), and cerebral infarction without residual deficits; Z90.49 Acquired absence of other specified parts of digestive tract
CPT/HCPCS: 36415; 70450; 71046; 80053; 85025; 85610; 85730; 94761; 96374; 99285; J3490; J7030

== ENCOUNTER 2018-11-30 14:32 | Emergency (ER) | payer OTHER, MEDICAID ==
[~2018-11-30] VITALS: Ht 152.4 cm; Wt 83.5 kg
[~2018-11-30 14:32] MED LIST changes: +AMLO5TAB13 PO; -AMLO5TAB2 PO
[2018-11-30 15:32] LABS: Basophils # (auto) 0.1 uL; Basophils % (auto) 0.7 % (0.0-2.0); Eosinophils # (auto) 0.1 uL; Eosinophils % (auto) 1.2 % (0.0-7.0); Hematocrit 46.6 % (36.0-46.0); Hemoglobin 15.4 g/dL (12.2-16.2); Lymphocytes # (auto) 1.3 uL; Mean Corpuscular Hemoglobin 29.5 pg (28.0-32.0); Mean Corpuscular Volume 89.4 fL (80.0-100.0); Monocytes # (auto) 0.4 uL; Monocytes % (auto) 4.7 % (0.0-12.0); Neutrophils # (auto) 6.1 uL; Neutrophils % (auto) 77.4 % (37.0-80.0); Nucleated Red Blood Cells % 0.1 %; Platelet Count (auto) 358 10^3/uL (140-450); Red Blood Cells 5.21 10^6/uL (4.0-5.20); Red Cell Distribution Width 14.5 % (11.8-14.3); White Blood Cell 7.9 10^3/uL (4.4-10.8)
[2018-11-30 15:36] LABS: Albumin 3.5 g/dL (3.4-5.0); Anion Gap 9 (5-15); Aspartate Aminotransferase 18 U/L (15-37); BUN/Creatinine Ratio 20.9; Blood Urea Nitrogen 18 mg/dL (7-18); Calcium 8.7 mg/dL (8.5-10.1); Carbon Dioxide 27 mmol/L (21-32); Chloride 94 mmol/L (98-107); GFR African American 91 mL/min; GFR Non-African American 75 mL/min; Potassium 4.1 mmol/L (3.5-5.1); Sodium 130 mmol/L (136-145)
[2018-11-30 15:41] LABS: Alanine Aminotransferase 24 U/L (13-56); Alkaline Phosphatase 100 U/L (45-117); Bilirubin, Total 0.7 mg/dL (0.2-1.0); Total Protein 8.4 g/dL (6.4-8.2)
[2018-11-30 15:56] LABS: Glucose 466 mg/dL (74-106)
[2018-11-30] MEDS ORDERED: SODIUM CHLORIDE 0.9% 500 ML IV ONE (16:15)
[2018-11-30] MEDS ORDERED: InsuLIN REG 1unit/0.01ml Soln (100units/ml) IV ONE (16:15)
[2018-11-30] MEDS ORDERED: LORazepam 2MG/ML-1ML VIAL IV ONE (17:00)
[2018-11-30 17:56] VITALS: BP 162/99
== END 2018-11-30 18:05 | disposition home or self-care (01) ==
LOC: ER 14:33
DX: E11.65 Type 2 diabetes mellitus with hyperglycemia (principal); R07.89 Other chest pain; F41.9 Anxiety disorder, unspecified; J45.909 Unspecified asthma, uncomplicated; E78.5 Hyperlipidemia, unspecified; I10 Essential (primary) hypertension; F17.210 Nicotine dependence, cigarettes, uncomplicated; Z79.4 Long term (current) use of insulin; Z79.899 Other long term (current) drug therapy; Z79.82 Long term (current) use of aspirin; Z86.73 Personal history of transient ischemic attack (TIA), and cerebral infarction without residual deficits; Z90.49 Acquired absence of other specified parts of digestive tract
CPT/HCPCS: 36415; 70450; 71045; 80053; 82962; 84484; 85025; 93005; 96361; 96374; 96375; 99284; J1815; J2060; J7040

== ENCOUNTER 2019-01-04 19:42 | Emergency (ER) | payer OTHER, MEDICAID ==
[~2019-01-04] VITALS: Ht 162.6 cm; Wt 90.7 kg
[2019-01-04] MEDS ORDERED: SODIUM CHLORIDE 0.9% 500 ML IV ONE (20:00)
[2019-01-04] MEDS ORDERED: MORPHINE SULF INJ 2 MG/ML SYRINGE 1ML IV ONE (20:00)
[2019-01-04 21:14] LABS: BUN/Creatinine Ratio 18.6; Calcium 8.7 mg/dL (8.5-10.1); Potassium 3.7 mmol/L (3.5-5.1)
[2019-01-04] MEDS ORDERED: InsuLIN REG 1unit/0.01ml Soln (100units/ml) IV ONE (22:15)
[2019-01-04 23:50] LABS: Basophils # (auto) 0 uL; Basophils % (auto) 0.6 % (0.0-2.0); Eosinophils # (auto) 0.1 uL; Eosinophils % (auto) 1.7 % (0.0-7.0); Hematocrit 39.7 % (36.0-46.0); Hemoglobin 13.1 g/dL (12.2-16.2); Lymphocytes # (auto) 2.4 uL; Lymphocytes % (auto) 31.8 % (10.0-50.0); Mean Corpuscular Hemoglobin 29.9 pg (28.0-32.0); Mean Corpuscular Volume 90.7 fL (80.0-100.0); Monocytes # (auto) 0.5 uL; Monocytes % (auto) 7.2 % (0.0-12.0); Neutrophils # (auto) 4.4 uL; Neutrophils % (auto) 58.7 % (37.0-80.0); Nucleated Red Blood Cells % 0.1 %; Platelet Count (auto) 262 10^3/uL (140-450); Red Blood Cells 4.37 10^6/uL (4.0-5.20); White Blood Cell 7.5 10^3/uL (4.4-10.8)
[2019-01-05 02:27] VITALS: BP 126/77
[2019-01-05] MEDS ORDERED: InsuLIN REG 1unit/0.01ml Soln (100units/ml) SC ONE (02:30)
== END 2019-01-05 03:23 | disposition home or self-care (01) ==
LOC: EDBD 19:42 → ER 19:47
DX: S93.401A Sprain of unspecified ligament of right ankle, initial encounter (principal); S96.911A Strain of unspecified muscle and tendon at ankle and foot level, right foot, initial encounter; L03.115 Cellulitis of right lower limb; E11.65 Type 2 diabetes mellitus with hyperglycemia; G40.409 Other generalized epilepsy and epileptic syndromes, not intractable, without status epilepticus; E11.22 Type 2 diabetes mellitus with diabetic chronic kidney disease; I12.9 Hypertensive chronic kidney disease with stage 1 through stage 4 chronic kidney disease, or unspecified chronic kidney disease; N18.9 Chronic kidney disease, unspecified; E78.5 Hyperlipidemia, unspecified; F17.210 Nicotine dependence, cigarettes, uncomplicated; Z79.4 Long term (current) use of insulin; Z79.899 Other long term (current) drug therapy; Z79.82 Long term (current) use of aspirin; Z86.73 Personal history of transient ischemic attack (TIA), and cerebral infarction without residual deficits; Z90.49 Acquired absence of other specified parts of digestive tract; X58.XXXA Exposure to other specified factors, initial encounter; Y99.8 Other external cause status; Y93.89 Activity, other specified; Y92.89 Other specified places as the place of occurrence of the external cause
CPT/HCPCS: 29515; 36415; 70450; 73610; 73630; 73700; 80048; 82962; 85025; 94761; 96361; 96372; 96374; 96375; 99284; J1815; J2270; J7040

== ENCOUNTER 2019-03-05 19:07 | Emergency (ER) | payer OTHER, MEDICAID ==
[~2019-03-05] VITALS: Ht 152.4 cm; Wt 87.1 kg
[2019-03-05 19:20] VITALS: BP 153/88
[2019-03-08] MEDS ORDERED: INSLANTI SC (02:57)
[2019-03-08] MEDS ORDERED: PRAV20TA3 PO (02:57)
== END 2019-03-05 22:00 | disposition left against medical advice (07) ==
LOC: ER 19:13
DX: R21 Rash and other nonspecific skin eruption (principal); Z53.21 Procedure and treatment not carried out due to patient leaving prior to being seen by health care provider

== ENCOUNTER 2019-03-07 14:58 | Inpatient (IN) | payer OTHER, MEDICAID | END 2019-03-08 13:36 | disposition left against medical advice (07) | LOC: ER 14:58 → TELE 14:59 → TELE-WESTW 19:53 | DX: E11.65 Type 2 diabetes mellitus with hyperglycemia (principal); I12.9 Hypertensive chronic kidney disease with stage 1 through stage 4 chronic kidney disease, or unspecified chronic kidney disease; E11.22 Type 2 diabetes mellitus with diabetic chronic kidney disease; N18.9 Chronic kidney disease, unspecified; J45.909 Unspecified asthma, uncomplicated; Z86.73 Personal history of transient ischemic attack (TIA), and cerebral infarction without residual deficits ==

== ENCOUNTER 2019-04-22 16:02 | Emergency (ER) | payer OTHER, MEDICAID ==
[~2019-04-22] VITALS: Ht 154.9 cm; Wt 86.2 kg
[~2019-04-22 16:02] MED LIST changes: -ACET500C8 PO; -AMLO5TAB13 PO; +AMLO5TAB15 PO; -AMOX-263 PO; -ATOR1TAB PO; -AZIT250T8 PO; -CIPR-173 PO; -INSLANTI; +INSLANTI SC; +PRAV20TA3 PO
[2019-04-22 16:10] VITALS: BP 111/77
[2019-04-22] MEDS ORDERED: SODIUM CHLORIDE 0.9% 500 ML IV ONE (17:34)
== END 2019-04-22 19:38 | disposition left against medical advice (07) ==
LOC: ER 16:02
DX: L03.115 Cellulitis of right lower limb (principal); R19.7 Diarrhea, unspecified; R11.2 Nausea with vomiting, unspecified; F17.210 Nicotine dependence, cigarettes, uncomplicated; F12.10 Cannabis abuse, uncomplicated; J45.909 Unspecified asthma, uncomplicated; E11.22 Type 2 diabetes mellitus with diabetic chronic kidney disease; I12.9 Hypertensive chronic kidney disease with stage 1 through stage 4 chronic kidney disease, or unspecified chronic kidney disease; N18.9 Chronic kidney disease, unspecified; E78.5 Hyperlipidemia, unspecified; Z79.4 Long term (current) use of insulin; Z86.73 Personal history of transient ischemic attack (TIA), and cerebral infarction without residual deficits; Z88.0 Allergy status to penicillin; Z79.899 Other long term (current) drug therapy
CPT/HCPCS: 73700; 94761

== ENCOUNTER 2019-08-07 14:10 | Emergency (ER) | payer OTHER, MEDICAID ==
[~2019-08-07] VITALS: Ht 167.6 cm; Wt 72.6 kg
[2019-08-07 14:20] VITALS: BP 185/95
== END 2019-08-07 16:22 | disposition left against medical advice (07) ==
LOC: ER 14:10 → EDBD 14:10 → ER 16:22
DX: R10.12 Left upper quadrant pain (principal); Z53.21 Procedure and treatment not carried out due to patient leaving prior to being seen by health care provider

== ENCOUNTER 2020-10-01 12:32 | Inpatient (IN) | payer OTHER, MEDICAID ==
[~2020-10-01] VITALS: Ht 152.4 cm; Wt 105.2 kg
[~2020-10-01 12:32] MED LIST changes: -ACET500C26 PO; +AMLO-489 PO; -AMLO5TAB15 PO; +CYCL10TA6 PO; -CYCL1TAB18 PO; +[UNRECOGNIZED DRUG - CODE] PO
[2020-10-01] MEDS ORDERED: MORPHINE SULFATE 4 MG/ML SYR/VIAL IV ONE (13:15)
[2020-10-01] MEDS ORDERED: CLINDAMYCIN 600MG IV 50 ML IV ONE (13:15)
[2020-10-01] MEDS ORDERED: SODIUM CHLORIDE 0.9% 500 ML IV ONE (13:15)
[2020-10-01] MEDS ORDERED: ONDANSETRON HCL 4 MG/2 ML VIAL IV ONE (13:15)
[2020-10-01 14:13] LABS: Mean Corpuscular Hgb Conc. 32.8 g/dL (32.0-36.0)
[2020-10-01 14:14] LABS: Hematocrit 32.3 % (36.0-46.0); Hemoglobin 10.6 g/dL (12.2-16.2); Mean Corpuscular Volume 88.4 fL (80.0-100.0); Platelet Count (auto) 464 10^3/uL (140-450); Red Blood Cells 3.66 10^6/uL (4.0-5.20); Red Cell Distribution Width 15.4 % (11.8-14.3); White Blood Cell 22.6 10^3/uL (4.4-10.8)
[2020-10-01 14:17] LABS: Basophils % (manual) 0 (0.0-2.0); Blast Cells 0; Promyelocytes % 0; Reactive Lymphocytes 0
[2020-10-01 14:27] LABS: Albumin 2.1 g/dL (3.4-5.0); Calcium 8.1 mg/dL (8.5-10.1); Potassium 4.1 mmol/L (3.5-5.1)
[2020-10-01 14:29] LABS: Bilirubin, Total 0.3 mg/dL (0.2-1.0); Total Protein 8.5 g/dL (6.4-8.2)
[2020-10-01 14:31] LABS: Band Neutrophils % (manual) 8; Eosinophils % (manual) 2 (0-7); Lymphocytes % (manual) 5 (10.0-50.0); Metamyelocytes % 3; Monocytes % (manual) 6 (0-12); Myelocytes % 1
[2020-10-01] MEDS ORDERED: NITROGLYCERIN 0.4 MG SL TAB SL PRN (15:30)
[2020-10-01] MEDS ORDERED: DEXTROSE (50%) 50ML SYRG IV PRN (15:30)
[2020-10-01] MEDS ORDERED: traMADol HCL 50 MG TAB PO PRN (15:30)
[2020-10-01] MEDS ORDERED: MORPHINE SULF INJ 2 MG/ML SYRINGE 1ML IV PRN (15:30)
[2020-10-01] MEDS ORDERED: levoFLOXacin 500MG 100 ML IV ONE ×2 (15:30)
[2020-10-01] MEDS ORDERED: TEMAZEPAM 15 MG CAP PO PRN (15:30)
[2020-10-01] MEDS ORDERED: ACETAMINOPHEN 500 MG TAB PO PRN (15:30)
[2020-10-01] MEDS: SODIUM CHLORIDE 0.9% 1,000 ML IV SCH (16:36)
[2020-10-01] MEDS: ACCU-CHEK COMFORT CURVE STRIP VI SCH ×2 (16:46→21:35)
[2020-10-01] MEDS: InsuLIN REG 1unit/0.01ml Soln (100units/ml) SC SCH ×2 (16:46→21:54)
[2020-10-01] MEDS: MORPHINE SULF INJ 2 MG/ML SYRINGE 1ML IV PRN ×2 (20:21→21:31)
[2020-10-01] MEDS: PROMETHAZINE HCL 25 MG/ML 1ML IV PRN ×2 (20:21→21:31)
[2020-10-01 21:28] LABS: Urine Bacteria FEW /hpf (None Seen); Urine Blood Negative /uL (Negative); Urine Hyaline Cast FEW /lpf (0 - 2); Urine Specific Gravity 1.029 (1.001-1.035); Urine WBC 2 /hpf (0 - 5)
[2020-10-01] MEDS: CLINDAMYCIN 600MG IV 50 ML IV SCH (21:31)
[2020-10-01] MEDS: FAMOTIDINE 20 MG TAB PO SCH (21:31)
[2020-10-02] MEDS: SODIUM CHLORIDE 0.9% 1,000 ML IV SCH (01:30)
[2020-10-02 03:37] VITALS: BP 92/48
[2020-10-02 03:38] VITALS: BP 87/50
[2020-10-02] MEDS: CLINDAMYCIN 600MG IV 50 ML IV SCH (04:33)
[2020-10-02 05:00] VITALS: BP 95/54
[2020-10-02] MEDS: InsuLIN REG 1unit/0.01ml Soln (100units/ml) SC SCH ×4 (06:13→21:17)
[2020-10-02] MEDS: ACCU-CHEK COMFORT CURVE STRIP VI SCH ×4 (06:14→21:15)
[2020-10-02] MEDS ORDERED: ROPIVACAINE 0.5% (5MG/ML) 20ML AMPULE IJ ONE (07:25)
[2020-10-02] MEDS ORDERED: CLINDAMYCIN 600MG IV 100 ML IV ONE (07:30)
[2020-10-02] MEDS ORDERED: MIDAZOLAM HCL 1MG/1ML-2 ML VIAL ONE (07:44)
[2020-10-02] MEDS ORDERED: MEPERIDINE HCL (50 MG/ML) 1 ML VIAL ONE (07:44)
[2020-10-02] MEDS ORDERED: fentaNYL CITRATE 100 MCG/2 ML VL ONE (07:44)
[2020-10-02 08:00] VITALS: BP 111/58
[2020-10-02 08:10] LABS: INR 1.14 (0.9-1.15)
[2020-10-02] MEDS ORDERED: PROPOFOL 10 MG/ML 20 ML IV ONE (08:12)
[2020-10-02] MEDS ORDERED: DexAMETHasone SOD PHOS 10MG/1ML VIAL INJ ONE (08:12)
[2020-10-02 08:13] LABS: Hematocrit 30.7 % (36.0-46.0); Hemoglobin 10.3 g/dL (12.2-16.2); Mean Corpuscular Hemoglobin 29.5 pg (28.0-32.0); Mean Corpuscular Hgb Conc. 33.6 g/dL (32.0-36.0); Mean Corpuscular Volume 87.8 fL (80.0-100.0); Platelet Count (auto) 447 10^3/uL (140-450); Red Cell Distribution Width 15.2 % (11.8-14.3); White Blood Cell 21.4 10^3/uL (4.4-10.8)
[2020-10-02 08:18] LABS: Chloride 100 mmol/L (98-107); Potassium 3.9 mmol/L (3.5-5.1); Sodium 132 mmol/L (136-145)
[2020-10-02] MEDS ORDERED: PHENYLEPHRINE HCL 10 MG/ML VL ONE (08:20)
[2020-10-02 08:24] LABS: Band Neutrophils % (manual) 0; Basophils % (manual) 0 (0.0-2.0); Blast Cells 0; Metamyelocytes % 0; Myelocytes % 0; Promyelocytes % 0; Reactive Lymphocytes 0
[2020-10-02] MEDS ORDERED: CLINDAMYCIN 900MG IV 50 ML IV ONE (08:29)
[2020-10-02 08:39] LABS: Alanine Aminotransferase 20 U/L (13-56); Albumin 1.9 g/dL (3.4-5.0); Alkaline Phosphatase 224 U/L (45-117); Anion Gap 6 (5-15); Aspartate Aminotransferase 15 U/L (15-37); BUN/Creatinine Ratio 12.5; Bilirubin, Total 0.4 mg/dL (0.2-1.0); Blood Urea Nitrogen 10 mg/dL (7-18); Calcium 7.7 mg/dL (8.5-10.1); Carbon Dioxide 26 mmol/L (21-32); GFR African American 98 mL/min; GFR Non-African American 81 mL/min; Glucose 79 mg/dL (74-106)
[2020-10-02 08:40] LABS: CRP High Sensitivity > 19.0 mg/dL (< 0.3)
[2020-10-02] MEDS ORDERED: NEOMYCIN-BACITRACIN-POLYM 15GM TOP OINT TOP ONE (08:41)
[2020-10-02 09:03] LABS: Eosinophils % (manual) 1 (0-7); Lymphocytes % (manual) 22 (10.0-50.0); Monocytes % (manual) 3 (0-12)
[2020-10-02] MEDS ORDERED: ePHEDrine SULFATE 50 MG/ML AMP IV PRN (09:15)
[2020-10-02] MEDS ORDERED: ONDANSETRON HCL 4 MG/2 ML VIAL IV PRN (09:15)
[2020-10-02] MEDS ORDERED: LABETALOL HCL 5 MG/ML 4ML SYRINGE IV PRN (09:15)
[2020-10-02] MEDS ORDERED: MORPHINE SULFATE 4 MG/ML SYR/VIAL IV PRN (09:15)
[2020-10-02] MEDS: levoFLOXacin 500MG 100 ML IV SCH ×2 (10:00→12:00)
[2020-10-02] MEDS: FAMOTIDINE 20 MG TAB PO SCH ×2 (10:00→21:18)
[2020-10-02] MEDS: ENOXAPARIN SOD 40 MG/0.4 ML SYRINGE SC SCH (10:00)
[2020-10-02] MEDS ORDERED: CLIN-203 PO (13:28)
[2020-10-02] MEDS ORDERED: SULF400T11 PO (13:28)
[2020-10-02] MEDS: MORPHINE SULF INJ 2 MG/ML SYRINGE 1ML IV PRN (14:46)
[2020-10-02 16:00] VITALS: BP 106/64
[2020-10-02 22:00] VITALS: BP 107/64
[2020-10-03] MEDS: MORPHINE SULF INJ 2 MG/ML SYRINGE 1ML IV PRN ×4 (00:52→14:17)
[2020-10-03 05:00] VITALS: BP 115/68
[2020-10-03] MEDS: ACCU-CHEK COMFORT CURVE STRIP VI SCH ×3 (06:14→17:00)
[2020-10-03] MEDS: InsuLIN REG 1unit/0.01ml Soln (100units/ml) SC SCH ×3 (06:17→17:00)
[2020-10-03 08:00] VITALS: BP 118/70
[2020-10-03 08:13] LABS: Mean Corpuscular Volume 88.1 fL (80.0-100.0)
[2020-10-03 08:16] LABS: Hematocrit 34.4 % (36.0-46.0); Hemoglobin 11.4 g/dL (12.2-16.2); Mean Corpuscular Hemoglobin 29.1 pg (28.0-32.0); Platelet Count (auto) 541 10^3/uL (140-450); Red Cell Distribution Width 15.2 % (11.8-14.3)
[2020-10-03 08:28] LABS: Basophils % (manual) 0 (0.0-2.0); Blast Cells 0; Eosinophils % (manual) 0 (0-7); Promyelocytes % 0; Reactive Lymphocytes 0
[2020-10-03 08:30] LABS: Potassium 4.2 mmol/L (3.5-5.1)
[2020-10-03 08:43] LABS: Albumin 1.8 g/dL (3.4-5.0); BUN/Creatinine Ratio 26.8; Bilirubin, Total 0.3 mg/dL (0.2-1.0); Calcium 8.7 mg/dL (8.5-10.1); Total Protein 8.4 g/dL (6.4-8.2)
[2020-10-03] MEDS: FAMOTIDINE 20 MG TAB PO SCH (09:51)
[2020-10-03] MEDS: levoFLOXacin 500MG 100 ML IV SCH (09:51)
[2020-10-03] MEDS: ENOXAPARIN SOD 40 MG/0.4 ML SYRINGE SC SCH (09:51)
[2020-10-03 12:30] LABS: Band Neutrophils % (manual) 38; Lymphocytes % (manual) 5 (10.0-50.0); Metamyelocytes % 4; Monocytes % (manual) 3 (0-12); Myelocytes % 4
[2020-10-03] MEDS ORDERED: LIDOCAINE 1% (LOCAL ANESTH.) PF 5ml SDV ID ONE (16:15)
[2020-10-03 17:07] VITALS: BP 134/84
[2020-10-03] MEDS ORDERED: SODIUM CHLOR 0.9% PF (SALINE LOCK) 10ML VIAL/SYR IV SCH (22:00)
== END 2020-10-03 18:00 | disposition home health service (06) | DRG 854 ==
LOC: ER 12:32 → TELE 12:33 → TELE-CENTR 10-02 03:00
PROVIDERS: ADMIT Internal Medicine; ATTEND Hospitalist
PROC: 0QBR0ZZ Excision of Left Toe Phalanx, Open Approach (ICD-10-PCS; 2020-10-02)
PROC: 0Y6Q0Z0 Detachment at Left 1st Toe, Complete, Open Approach (ICD-10-PCS; principal; 2020-10-02 07:47)
PROC: 02HV33Z Insertion of Infusion Device into Superior Vena Cava, Percutaneous Approach (ICD-10-PCS; 2020-10-03)
DX: A41.9 Sepsis, unspecified organism (principal); M86.8X7 Other osteomyelitis, ankle and foot; Z68.42 Body mass index [BMI] 45.0-49.9, adult; E44.1 Mild protein-calorie malnutrition; E11.65 Type 2 diabetes mellitus with hyperglycemia; M65.9 Synovitis and tenosynovitis, unspecified; D64.9 Anemia, unspecified; E66.01 Morbid (severe) obesity due to excess calories; I10 Essential (primary) hypertension; J45.909 Unspecified asthma, uncomplicated; E11.621 Type 2 diabetes mellitus with foot ulcer; E11.69 Type 2 diabetes mellitus with other specified complication; G24.01 Drug induced subacute dyskinesia; Z20.822 Contact with and (suspected) exposure to COVID-19; E78.5 Hyperlipidemia, unspecified; R56.9 Unspecified convulsions; Z79.4 Long term (current) use of insulin; Z82.0 Family history of epilepsy and other diseases of the nervous system; Z82.3 Family history of stroke; Z82.49 Family history of ischemic heart disease and other diseases of the circulatory system; Z82.5 Family history of asthma and other chronic lower respiratory diseases; Z83.3 Family history of diabetes mellitus; Z88.0 Allergy status to penicillin; Z88.8 Allergy status to other drugs, medicaments and biological substances
CPT/HCPCS: 36415; 36569; 71045; 73700; 80053; 81001; 82962; 83036; 85007; 85027; 85610; 85652; 86141; 87040; 87070; 87075; 87076; 87077; 87081; 87186; 87205; 87426; 96365; 96375; G0378; J1100; J1815; J1956; J2250; J2405; J2704; J3490

== ENCOUNTER 2020-10-13 10:02 | Inpatient (IN) | payer OTHER, MEDICAID ==
[~2020-10-13] VITALS: Ht 152.4 cm; Wt 103.8 kg
[~2020-10-13 10:02] MED LIST changes: +AMIT25TA12 PO; -AMIT25TA9 PO; -ASCO500T11 PO; -ASPI-264 PO; +ASPI325T33 PO; -BACL10TA PO; +CYCL-839 PO; -CYCL10TA6 PO; +SULF400T11 PO
[2020-10-13] MEDS ORDERED: PIPERACILLIN-TAZOB 3.375GM 100 ML IV ONE (10:30)
[2020-10-13 10:58] LABS: Basophils # (auto) 0 10 ^3/uL (0-0.2); Hematocrit 27.5 % (36.0-46.0); Lymphocytes # (auto) 1.7 10 ^3/uL (0.4-5.4); Monocytes # (auto) 1.2 10 ^3/uL (0-1.3); Monocytes % (auto) 8.1 % (0.0-12.0)
[2020-10-13] MEDS ORDERED: SODIUM CHLORIDE 0.9% 1,000 ML IV ONE ×2 (11:00)
[2020-10-13 11:03] LABS: Basophils % (auto) 0.3 % (0.0-2.0); Eosinophils # (auto) 0 10 ^3/uL (0-0.8); Eosinophils % (auto) 0.3 % (0.0-7.0); Hemoglobin 9.1 g/dL (12.2-16.2); Lymphocytes % (auto) 11.4 % (10.0-50.0); Mean Corpuscular Hemoglobin 28.8 pg (28.0-32.0); Mean Corpuscular Volume 87.3 fL (80.0-100.0); Neutrophils # (auto) 12.1 10 ^3/uL (1.6-8.6); Neutrophils % (auto) 79.9 % (37.0-80.0); Red Blood Cells 3.15 10^6/uL (4.0-5.20); Red Cell Distribution Width 16.2 % (11.8-14.3); White Blood Cell 15.2 10^3/uL (4.4-10.8)
[2020-10-13 11:15] LABS: INR 1.13 (0.9-1.15)
[2020-10-13 11:22] LABS: Chloride 94 mmol/L (98-107); Sodium 126 mmol/L (136-145)
[2020-10-13 11:34] LABS: Alanine Aminotransferase 16 U/L (13-56); Albumin 1.7 g/dL (3.4-5.0); Alkaline Phosphatase 137 U/L (45-117); Anion Gap 7 (5-15); Aspartate Aminotransferase 15 U/L (15-37); BUN/Creatinine Ratio 12.9; Bilirubin, Total 0.5 mg/dL (0.2-1.0); Blood Urea Nitrogen 26 mg/dL (7-18); Calcium 7.8 mg/dL (8.5-10.1); Carbon Dioxide 25 mmol/L (21-32); GFR African American 34 mL/min; GFR Non-African American 28 mL/min; Glucose 269 mg/dL (74-106); Total Protein 8.5 g/dL (6.4-8.2)
[2020-10-13 11:42] LABS: Potassium 5.7 mmol/L (3.5-5.1)
[2020-10-13] MEDS ORDERED: InsuLIN REG 1unit/0.01ml Soln (100units/ml) IV ONE (12:00)
[2020-10-13] MEDS ORDERED: SODIUM ZIRCONIUM CYCL 10 GM PAK PO ONE (12:00)
[2020-10-13] MEDS ORDERED: FUROSEMIDE 20 MG/2 ML VIAL IV ONE (12:00)
[2020-10-13] MEDS ORDERED: SODIUM BICARBONATE 8.4% INJ 50ML SYRINGE ONE (12:00)
[2020-10-13] MEDS ORDERED: SODIUM BICARBONATE 8.4% INJ 50ML SYRINGE IV ONE (12:00)
[2020-10-13] MEDS ORDERED: CALCIUM GLUC 4.65meq/50ml D5AE 50 ML IV ONE (12:00)
[2020-10-13] MEDS ORDERED: DEXTROSE (50%) 50ML SYRG IV ONE (12:00)
[2020-10-13] MEDS ORDERED: ALBUTEROL SULF 2.5 MG/0.5ML(0.5%) NEB SOLN NEB ONE (12:00)
[2020-10-13] MEDS ORDERED: ONDANSETRON HCL 4 MG/2 ML VIAL IV PRN (13:45)
[2020-10-13] MEDS ORDERED: DEXTROSE (50%) 50ML SYRG IV PRN (13:45)
[2020-10-13] MEDS ORDERED: ACETAMINOPHEN 500 MG TAB PO PRN (13:45)
[2020-10-13] MEDS: LINEZOLID 600MG/300ML 300 ML IV SCH ×2 (16:02→23:21)
[2020-10-13] MEDS ORDERED: MORPHINE SULFATE INJECTION 2 MG/ML SYRG IV PRN (16:30)
[2020-10-13] MEDS ORDERED: NITROGLYCERIN 0.4 MG SL TAB SL PRN (16:30)
[2020-10-13] MEDS: InsuLIN REG 1unit/0.01ml Soln (100units/ml) SC SCH ×2 (17:32→23:21)
[2020-10-13] MEDS: AMITRIPTYLINE HCL 25 MG TAB PO SCH (17:36)
[2020-10-13] MEDS: ACCU-CHEK COMFORT CURVE STRIP VI SCH ×2 (17:36→22:00)
[2020-10-13 22:07] VITALS: BP 101/62
[2020-10-13 22:36] LABS: Urine Bacteria NONE SEEN /hpf (None Seen); Urine Blood Negative /uL (Negative); Urine Specific Gravity 1.017 (1.001-1.035); Urine WBC 1 /hpf (0 - 5)
[2020-10-13 22:40] LABS: Protein, Urine 17.3 mg/dL (0.0-11.9)
[2020-10-13] MEDS: CYCLOBENZAPRINE HCL 10 MG TAB PO SCH (23:22)
[2020-10-13] MEDS: PRAVASTATIN SODIUM 20 MG TAB PO SCH (23:23)
[2020-10-13] MEDS: GABAPENTIN 300 MG CAP PO SCH (23:23)
[2020-10-14] MEDS ORDERED: HYDR-4072 PO (00:31)
[2020-10-14] MEDS ORDERED: AMIT25TA12 PO (00:31)
[2020-10-14] MEDS ORDERED: INSLANTI SC (00:31)
[2020-10-14] MEDS ORDERED: FLUT110A INH (00:31)
[2020-10-14] MEDS ORDERED: AMLO-489 PO (00:31)
[2020-10-14] MEDS ORDERED: METF-370 PO (00:31)
[2020-10-14] MEDS ORDERED: EMPA1TAB PO (00:31)
[2020-10-14] MEDS ORDERED: GABA300C10 PO (00:31)
[2020-10-14] MEDS ORDERED: OMEG1CAP59 PO (00:31)
[2020-10-14] MEDS ORDERED: LISI40TA11 PO (00:31)
[2020-10-14] MEDS ORDERED: INSLISPI SC (00:31)
[2020-10-14] MEDS ORDERED: ALPR0.25 PO (00:31)
[2020-10-14] MEDS ORDERED: CITA10TA70 PO (00:31)
[2020-10-14 05:00] VITALS: BP 96/62
[2020-10-14] MEDS: HYDROcodone-ACET 5/325MG TAB PO PRN ×2 (05:27→20:04)
[2020-10-14 06:33] LABS: Basophils # (auto) 0 10 ^3/uL (0-0.2); Eosinophils # (auto) 0.1 10 ^3/uL (0-0.8); Lymphocytes # (auto) 1.4 10 ^3/uL (0.4-5.4)
[2020-10-14 06:36] LABS: Basophils % (auto) 0.3 % (0.0-2.0); Eosinophils % (auto) 0.6 % (0.0-7.0); Hematocrit 25.3 % (36.0-46.0); Hemoglobin 8.3 g/dL (12.2-16.2); Lymphocytes % (auto) 10.9 % (10.0-50.0); Mean Corpuscular Hemoglobin 28.6 pg (28.0-32.0); Mean Corpuscular Hgb Conc. 32.9 g/dL (32.0-36.0); Mean Corpuscular Volume 86.8 fL (80.0-100.0); Monocytes % (auto) 7.4 % (0.0-12.0); Neutrophils # (auto) 10.8 10 ^3/uL (1.6-8.6); Neutrophils % (auto) 80.8 % (37.0-80.0); Red Blood Cells 2.92 10^6/uL (4.0-5.20); Red Cell Distribution Width 15.9 % (11.8-14.3); White Blood Cell 13.3 10^3/uL (4.4-10.8)
[2020-10-14] MEDS: ACCU-CHEK COMFORT CURVE STRIP VI SCH ×4 (06:44→22:06)
[2020-10-14] MEDS: InsuLIN REG 1unit/0.01ml Soln (100units/ml) SC SCH ×4 (06:45→22:23)
[2020-10-14 06:52] LABS: Potassium 4.5 mmol/L (3.5-5.1)
[2020-10-14] MEDS: MORPHINE SULFATE INJECTION 2 MG/ML SYRG IV PRN ×3 (06:53→22:57)
[2020-10-14 06:57] LABS: BUN/Creatinine Ratio 18.8
[2020-10-14 08:28] VITALS: BP 130/79
[2020-10-14] MEDS ORDERED: LEVETIRACETAM 1000 MG PO SCH (10:00)
[2020-10-14] MEDS ORDERED: levETIRAcetam 500 MG TAB PO SCH (10:00)
[2020-10-14] MEDS: CITALOPRAM HYDROBR 20 MG TAB PO SCH (10:47)
[2020-10-14] MEDS: LINEZOLID 600MG/300ML 300 ML IV SCH (10:47)
[2020-10-14] MEDS: CYCLOBENZAPRINE HCL 10 MG TAB PO SCH ×2 (10:47→22:06)
[2020-10-14] MEDS: PANTOPRAZOLE 40 MG TAB PO SCH (10:49)
[2020-10-14] MEDS: INSULIN LANTUS (GLARGINE) 1 /0.01ml (100units/ml) SC SCH (10:49)
[2020-10-14] MEDS: GABAPENTIN 300 MG CAP PO SCH ×2 (10:49→22:06)
[2020-10-14] MEDS ORDERED: OMEG100078 PO (15:46)
[2020-10-14] MEDS ORDERED: METF-929 PO (15:47)
[2020-10-14] MEDS ORDERED: AMLO-496 PO (15:47)
[2020-10-14] MEDS ORDERED: ALBU0.084 NEB (15:50)
[2020-10-14] MEDS ORDERED: ALBUAER3 IN (15:50)
[2020-10-14] MEDS ORDERED: INSU100I4 SC (15:53)
[2020-10-14] MEDS ORDERED: IBUP200T76 PO (15:53)
[2020-10-14] MEDS ORDERED: LEVO1INJ3 IV (15:54)
[2020-10-14] MEDS ORDERED: AMIT-256 PO (15:59)
[2020-10-14 16:09] VITALS: BP 93/66
[2020-10-14] MEDS: AMITRIPTYLINE HCL 25 MG TAB PO SCH (17:20)
[2020-10-14] MEDS ORDERED: VANCOMYCIN 1GM/250ML 250 ML IV ONE (20:00)
[2020-10-14] MEDS ORDERED: VANCOMYCIN PER PHARMACY 0 MG IV SCH (20:00)
[2020-10-14 22:00] VITALS: BP 100/60
[2020-10-14] MEDS: DOXYCYCLINE 100MG/250ML 250 ML IV SCH (22:06)
[2020-10-14] MEDS: PRAVASTATIN SODIUM 20 MG TAB PO SCH (22:06)
[2020-10-15] MEDS: VANCOMYCIN 1GM/250ML 250 ML IV SCH ×2 (00:45→10:31)
[2020-10-15] MEDS: MORPHINE SULFATE INJECTION 2 MG/ML SYRG IV PRN ×3 (04:54→14:48)
[2020-10-15 04:58] VITALS: BP 102/67
[2020-10-15] MEDS: IPRATROPIUM BROM 0.5 MG/2.5ML INH SOL NEB SCH ×3 (06:16→19:03)
[2020-10-15] MEDS: ALBUTEROL SULF 2.5 MG/0.5ML(0.5%) NEB SOLN NEB SCH ×3 (06:16→19:03)
[2020-10-15] MEDS: InsuLIN REG 1unit/0.01ml Soln (100units/ml) SC SCH ×4 (06:34→22:46)
[2020-10-15 06:59] LABS: Basophils # (auto) 0.1 10 ^3/uL (0-0.2); Eosinophils # (auto) 0.1 10 ^3/uL (0-0.8); Lymphocytes # (auto) 1.4 10 ^3/uL (0.4-5.4); Monocytes # (auto) 0.9 10 ^3/uL (0-1.3); Neutrophils # (auto) 8.2 10 ^3/uL (1.6-8.6)
[2020-10-15 07:00] LABS: Basophils % (auto) 0.8 % (0.0-2.0); Eosinophils % (auto) 1.4 % (0.0-7.0); Hematocrit 26.5 % (36.0-46.0); Hemoglobin 8.6 g/dL (12.2-16.2); Lymphocytes % (auto) 12.8 % (10.0-50.0); Mean Corpuscular Hemoglobin 28.5 pg (28.0-32.0); Mean Corpuscular Hgb Conc. 32.6 g/dL (32.0-36.0); Mean Corpuscular Volume 87.6 fL (80.0-100.0); Monocytes % (auto) 8.8 % (0.0-12.0); Neutrophils % (auto) 76.2 % (37.0-80.0); Red Blood Cells 3.03 10^6/uL (4.0-5.20); White Blood Cell 10.7 10^3/uL (4.4-10.8)
[2020-10-15] MEDS: ACCU-CHEK COMFORT CURVE STRIP VI SCH ×4 (07:00→22:47)
[2020-10-15 07:07] LABS: Calcium 8.3 mg/dL (8.5-10.1); Potassium 4.6 mmol/L (3.5-5.1)
[2020-10-15 08:00] VITALS: BP 110/72
[2020-10-15] MEDS: DOXYCYCLINE 100MG/250ML 250 ML IV SCH ×2 (08:59→22:47)
[2020-10-15] MEDS: CITALOPRAM HYDROBR 20 MG TAB PO SCH (10:29)
[2020-10-15] MEDS: GABAPENTIN 300 MG CAP PO SCH ×2 (10:29→22:00)
[2020-10-15] MEDS: CYCLOBENZAPRINE HCL 10 MG TAB PO SCH ×2 (10:29→22:00)
[2020-10-15] MEDS: INSULIN LANTUS (GLARGINE) 1 /0.01ml (100units/ml) SC SCH (10:30)
[2020-10-15] MEDS: PANTOPRAZOLE 40 MG TAB PO SCH (10:30)
[2020-10-15] MEDS ORDERED: SODIUM CHLORIDE 0.9% 1,000 ML IV SCH (12:00)
[2020-10-15] MEDS: SODIUM CHLORIDE 0.9% 1,000 ML IV SCH ×2 (13:06→21:40)
[2020-10-15 16:00] VITALS: BP 128/89
[2020-10-15] MEDS: HYDROcodone-ACET 5/325MG TAB PO PRN (16:44)
[2020-10-15] MEDS: AMITRIPTYLINE HCL 25 MG TAB PO SCH (18:37)
[2020-10-15] MEDS: PRAVASTATIN SODIUM 20 MG TAB PO SCH (22:00)
[2020-10-15 23:41] VITALS: BP 84/58
[2020-10-16] MEDS: VANCOMYCIN 1GM/250ML 250 ML IV SCH ×2 (01:15→11:00)
[2020-10-16] MEDS: MORPHINE SULFATE INJECTION 2 MG/ML SYRG IV PRN ×3 (04:29→15:48)
[2020-10-16 05:36] VITALS: BP 105/62
[2020-10-16] MEDS: ALBUTEROL SULF 2.5 MG/0.5ML(0.5%) NEB SOLN NEB SCH ×2 (05:45→11:49)
[2020-10-16] MEDS: IPRATROPIUM BROM 0.5 MG/2.5ML INH SOL NEB SCH ×2 (05:45→11:49)
[2020-10-16] MEDS: InsuLIN REG 1unit/0.01ml Soln (100units/ml) SC SCH ×3 (06:41→17:00)
[2020-10-16] MEDS: ACCU-CHEK COMFORT CURVE STRIP VI SCH ×3 (06:41→17:00)
[2020-10-16 07:05] LABS: Calcium 8.3 mg/dL (8.5-10.1); Potassium 4.3 mmol/L (3.5-5.1)
[2020-10-16 07:08] LABS: BUN/Creatinine Ratio 14.5
[2020-10-16 07:17] LABS: Basophils # (auto) 0 10 ^3/uL (0-0.2); Eosinophils # (auto) 0.1 10 ^3/uL (0-0.8); Hemoglobin 8.9 g/dL (12.2-16.2); Mean Corpuscular Volume 85.5 fL (80.0-100.0); Neutrophils # (auto) 8.3 10 ^3/uL (1.6-8.6)
[2020-10-16 07:19] LABS: Basophils % (auto) 0.3 % (0.0-2.0); Eosinophils % (auto) 1.2 % (0.0-7.0); Hematocrit 26.6 % (36.0-46.0); Lymphocytes # (auto) 1.1 10 ^3/uL (0.4-5.4); Lymphocytes % (auto) 10.9 % (10.0-50.0); Mean Corpuscular Hemoglobin 28.5 pg (28.0-32.0); Mean Corpuscular Hgb Conc. 33.3 g/dL (32.0-36.0); Monocytes # (auto) 0.7 10 ^3/uL (0-1.3); Monocytes % (auto) 6.7 % (0.0-12.0); Neutrophils % (auto) 80.9 % (37.0-80.0); Red Blood Cells 3.11 10^6/uL (4.0-5.20); Red Cell Distribution Width 15.9 % (11.8-14.3); White Blood Cell 10.3 10^3/uL (4.4-10.8)
[2020-10-16 08:00] VITALS: BP 109/71
[2020-10-16] MEDS: SODIUM CHLORIDE 0.9% 1,000 ML IV SCH (08:15)
[2020-10-16] MEDS: DOXYCYCLINE 100MG/250ML 250 ML IV SCH (09:16)
[2020-10-16] MEDS: CITALOPRAM HYDROBR 20 MG TAB PO SCH (09:41)
[2020-10-16] MEDS: CYCLOBENZAPRINE HCL 10 MG TAB PO SCH (09:41)
[2020-10-16] MEDS: PANTOPRAZOLE 40 MG TAB PO SCH (09:42)
[2020-10-16] MEDS: GABAPENTIN 300 MG CAP PO SCH (09:42)
[2020-10-16 10:15] LABS: Phosphorus 4.2 mg/dL (2.5-4.90); Uric Acid 4.9 mg/dL (2.6-6.0)
[2020-10-16] MEDS: INSULIN LANTUS (GLARGINE) 1 /0.01ml (100units/ml) SC SCH (11:52)
[2020-10-16 15:33] VITALS: BP 136/75
[2020-10-16 15:36] VITALS: BP 136/74
[2020-10-16 16:38] VITALS: BP 108/69
[2020-10-16] MEDS ORDERED: VANCOMYCIN 750mg/250ml 250 ML IV SCH (17:00)
== END 2020-10-16 18:50 | disposition short-term general hospital (02) | DRG 871 ==
LOC: EDBD 10:02 → ER 10:02 → TELE 16:19 → TELE-EAST 22:07
PROVIDERS: ADMIT Nurse Practitioner Acute Care; ATTEND Internal Medicine
DX: A41.9 Sepsis, unspecified organism (principal); N17.0 Acute kidney failure with tubular necrosis; J96.01 Acute respiratory failure with hypoxia; E43 Unspecified severe protein-calorie malnutrition; G92 Toxic encephalopathy; R65.21 Severe sepsis with septic shock; J18.9 Pneumonia, unspecified organism; E11.52 Type 2 diabetes mellitus with diabetic peripheral angiopathy with gangrene; E87.1 Hypo-osmolality and hyponatremia; I69.354 Hemiplegia and hemiparesis following cerebral infarction affecting left non-dominant side; L03.116 Cellulitis of left lower limb; M86.8X8 Other osteomyelitis, other site; J44.0 Chronic obstructive pulmonary disease with (acute) lower respiratory infection; Z68.41 Body mass index [BMI] 40.0-44.9, adult; J98.11 Atelectasis; E87.5 Hyperkalemia; D64.9 Anemia, unspecified; G40.909 Epilepsy, unspecified, not intractable, without status epilepticus; E78.5 Hyperlipidemia, unspecified; Z20.822 Contact with and (suspected) exposure to COVID-19; B37.2 Candidiasis of skin and nail; E11.22 Type 2 diabetes mellitus with diabetic chronic kidney disease; E11.40 Type 2 diabetes mellitus with diabetic neuropathy, unspecified; E11.65 Type 2 diabetes mellitus with hyperglycemia; E11.69 Type 2 diabetes mellitus with other specified complication; E66.01 Morbid (severe) obesity due to excess calories; E78.00 Pure hypercholesterolemia, unspecified; F32.9 Major depressive disorder, single episode, unspecified; F41.9 Anxiety disorder, unspecified; G24.01 Drug induced subacute dyskinesia; I12.9 Hypertensive chronic kidney disease with stage 1 through stage 4 chronic kidney disease, or unspecified chronic kidney disease; L22 Diaper dermatitis; R33.9 Retention of urine, unspecified; L97.529 Non-pressure chronic ulcer of other part of left foot with unspecified severity; G89.29 Other chronic pain; B95.62 Methicillin resistant Staphylococcus aureus infection as the cause of diseases classified elsewhere; N18.9 Chronic kidney disease, unspecified; N32.0 Bladder-neck obstruction; Z79.51 Long term (current) use of inhaled steroids; Z80.0 Family history of malignant neoplasm of digestive organs; Z82.0 Family history of epilepsy and other diseases of the nervous system; Z82.3 Family history of stroke; Z82.49 Family history of ischemic heart disease and other diseases of the circulatory system; Z82.5 Family history of asthma and other chronic lower respiratory diseases; Z83.3 Family history of diabetes mellitus; Z89.411 Acquired absence of right great toe; Z89.412 Acquired absence of left great toe; Z79.84 Long term (current) use of oral hypoglycemic drugs; Z79.899 Other long term (current) drug therapy; Z82.61 Family history of arthritis; Z88.0 Allergy status to penicillin; Z88.8 Allergy status to other drugs, medicaments and biological substances; E11.621 Type 2 diabetes mellitus with foot ulcer
CPT/HCPCS: 36415; 70450; 71045; 73700; 76775; 78582; 80048; 80053; 80202; 81001; 82565; 82570; 82962; 83605; 83880; 83930; 84100; 84132; 84156; 84300; 84484; 84550; 84702; 85025; 85379; 85610; 85730; 86850; 86900; 86901; 87040; 87077; 87081; 87186; 87205; 87426; 93005; 93306; 93926; 94640; 99291; G0378; J0610; J1815; J2543; J3490